=== PATIENT | male | born 1960 | race African-American/Black ===

== ENCOUNTER 2017-06-26 10:49 | Emergency (ER) | payer MEDICARE, MEDICAID ==
--- NOTE | ~2017-06-26 | ER ---
PATIENT'S NAME: BIANCA JUDGE [facility] AGE: 57 Y [address] ROOM: [place] [address] LOCATION: [facility] ADMIT DATE: 06/26/2017 ER/Outpatient Report DISCHARGE DATE: 06/26/2017 FAMILY PHYSICIAN: Mike Woodson MD ATTENDING PHYSICIAN: Nicolas Bergeron CHIEF COMPLAINT: Right hand pain. HISTORY OF PRESENT ILLNESS: Mr. Judge using a pair of raquel on Monday to cut a tree limb of some nature. Upon closing of those, he felt a pop in the back of his right hand. He has been wearing a brace for support, but has not taken any medications for same. He has not been seen for this by anyone. He doctors primarily with Dr. Woodson. He denies any numbness or tingling or weakness in the hand, just pain in the back. PAST MEDICAL HISTORY: Documented on the record and reviewed by me. SOCIAL HISTORY: Documented on the record and reviewed by me. MEDICATIONS: Documented on the record and reviewed by me. ALLERGIES: DOCUMENTED ON THE RECORD AND REVIEWED BY ME. REVIEW OF SYSTEMS: All systems reviewed and negative except as noted in the HPI. PHYSICAL EXAMINATION: VITAL SIGNS: Blood pressure is 147/79, pulse is 73, respiratory rate is 18, temperature is 98.4, and SpO2 is 97% on room air. Pain is rated at 5/10. GENERAL: Age-appropriate male, sitting upright on the exam chair, in no apparent pain or distress. NEUROLOGIC: Awake and alert. GCS 15. No focal deficits. No asymmetry. HEENT: Normocephalic, atraumatic. Eyes are PERRL. Oropharynx is clear. NECK: Supple. Trachea is midline. CHEST: Even and unlabored respirations. HEART: Regular rate. ABDOMEN: Obese, but otherwise unremarkable to inspection. SKIN: Clean, dry, and intact. EXTREMITIES: Grossly unremarkable. Focused extremity exam of the right upper PATIENT'S NAME: BIANCA JUDGE [facility] AGE: 57 Y [address] ROOM: [place] [address] LOCATION: [facility] ADMIT DATE: 06/26/2017 ER/Outpatient Report DISCHARGE DATE: 06/26/2017 FAMILY PHYSICIAN: Mike Woodson MD ATTENDING PHYSICIAN: Nicolas Bergeron extremity reveals some tenderness over the dorsum of the hand. The patient has intact extensor mechanism of all fingers. The hand is neurovascularly intact. He is able to make thumbs up okay sign, thumb to pinky finger, and has intrinsic muscle strength, symmetric with contralateral side. [employer] strength is intact. There is no ligamentous instability throughout the wrist. Axial loading of the thumb produces pain on the ulnar aspect of the dorsum of the wrist. There is no tenderness with palpation of the tendon sheath. LABORATORY DATA AND X-RAYS: Plain films of the wrist were obtained with no fractures. IMPRESSION: Right wrist pain. EMERGENCY DEPARTMENT COURSE: The patient was seen and evaluated. His presentation is not consistent with septic joint or other inflammatory arthropathy, such as pseudogout or gout. There is no evidence of tenosynovitis. The entire extensor mechanism appears to be intact. I do not think that there is any tendon injury. Unclear as to the exact cause of his pain. Recommend support with the brace and scheduled anti-inflammatories. Follow up with Dr. Woodson in a few days if not markedly improved. Ice as needed. Return to the ER for uncontrolled symptoms. NICOLAS MD RAVI BERGERON/balaji /[id number] d: 06/26/171952 t: 07/11/17910, OUTPATIENT REPORT
== END 2017-06-26 11:37 | disposition disaster alternative care site (69) ==
LOC: GMED 10:49
DX: M25.531 Pain in right wrist (principal); I11.9 Hypertensive heart disease without heart failure; E11.9 Type 2 diabetes mellitus without complications; Z21 Asymptomatic human immunodeficiency virus [HIV] infection status; Z79.84 Long term (current) use of oral hypoglycemic drugs; Z79.1 Long term (current) use of non-steroidal anti-inflammatories (NSAID); Z79.82 Long term (current) use of aspirin; Z79.899 Other long term (current) drug therapy